=== PATIENT | male | born 1980 | race African-American/Black ===

== ENCOUNTER 2017-06-16 20:30 | Emergency (ER) | payer SELFPAY ==
[~2017-06-16] VITALS: Ht 180.3 cm; Wt 90.7 kg
--- NOTE | 2017-06-16 20:40 | NUR ---
TO BED 8 A 36 YO MALE PATIENT WALKED INTO ER WITH [id number]. INTERMITTENT L ARM "TINGLING" X1 WEEK. PATIENT ADMITTED TO USING "[facility] YESTERDAY." PATIENT IS ALERT RESPONSIVE. NAD NOTED. VSS. DISTAL CMS OF L ARM INTACT. NONDIAPHORETIC. BREATHING EVEN AND UNLABORED. SAFETY AND COMFORT MEASURES RENDERED.
--- NOTE | 2017-06-16 21:30 | NUR ---
MEDICATED PATIENT ORDERED BY AUSTEN ZAPATA.
--- NOTE | 2017-06-16 21:37 | NUR ---
Patient discharged to home in stable condition. Written and verbal after care instructions given. Patient verbalizes understanding of instruction. Patient is ambulatory with steady gait, Instructed not to drive and he said his friend is going to pick him up. no further complaints.
[2017-06-16 21:38] VITALS: BP 127/74
== END 2017-06-16 21:39 | disposition home or self-care (01) ==
LOC: ER 20:32
DX: R20.2 Paresthesia of skin (principal); F15.10 Other stimulant abuse, uncomplicated; M62.838 Other muscle spasm; F17.200 Nicotine dependence, unspecified, uncomplicated
CPT/HCPCS: A4606; J1885; Z7610